=== PATIENT | female | born 1995 | race Caucasian/White ===

== ENCOUNTER → 2017-06-04 | Outpatient (CLI) | payer BC ==
--- NOTE | 2017-06-04 21:09 | DIAGNOSTIC IMAGING REPORT ---
MRI OF THE RIGHT KNEE CLINICAL HISTORY: Right knee pain. COMPARISON STUDY: No priors. TECHNIQUE: MRI of the right knee was performed utilizing proton density, T1, and T2-weighted sequences in the axial, sagittal, coronal planes. IV contrast was not administered for this examination. Note that interpretation is suboptimal without plain film correlate. FINDINGS: Menisci: The medial meniscus is intact. There is maceration with a large complex tear involving the body and posterior horn of the lateral meniscus. A large fragment is flipped posteriorly, best seen on sagittal image #11. Ligaments: The anterior and posterior cruciate ligaments are intact. The medial and lateral collateral ligaments are within normal limits. Extensor mechanism: The extensor mechanism is intact. Hoffa's fat pad is normal in appearance. Articular cartilage and bone: The articular cartilage is intact and well maintained all 3 compartments. Normal marrow signal is preserved of the visualized bony structures. Joint effusion: There is small to moderate joint effusion. Soft tissues: The musculature surrounding the knee joint is normal in bulk and signal intensity. IMPRESSION: 1. There is maceration with a large complex tear involving the body and posterior horn of the lateral meniscus. A fragment is flipped posteriorly. 2. The medial meniscus, the cruciate ligaments, and the collateral ligaments appear maintained. 3. Small to moderate joint effusion. 4. No osseous abnormality is identified. Electronically signed by: Urbano Espana M.D. 06/04/2017 9:08 PM Dictated Date/Time: 06/04/2017 9:03 PM
== END | disposition home or self-care (01) ==
LOC: C.MRI 19:43
PROVIDERS: ATTEND Physician Assistant
DX: S83.91XA Sprain of unspecified site of right knee, initial encounter (principal); S83.271A Complex tear of lateral meniscus, current injury, right knee, initial encounter; X58.XXXA Exposure to other specified factors, initial encounter